=== PATIENT | female | born 1975 | race Hispanic/Latino ===

== ENCOUNTER 2024-06-04 19:32 | Emergency (ER) | payer SELFPAY ==
[2024-06-04 19:41] VITALS: BP 114/78
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
[2024-06-04] MEDS: TYLENOL 650 MG PO (22:09)
[2024-06-04] MEDS: MOTRIN 600 MG PO (22:09)
[2024-06-04 22:53] VITALS: BP 109/68
== END 2024-06-04 22:55 | disposition home or self-care (01) ==
LOC: EMR 19:32
PROVIDERS: EMERGENCY PHYSICIAN Emergency Medicine
DX: S39.012A Strain of muscle, fascia and tendon of lower back, initial encounter (principal); S13.4XXA Sprain of ligaments of cervical spine, initial encounter; S63.501A Unspecified sprain of right wrist, initial encounter; R07.89 Other chest pain; T14.8XXA Other injury of unspecified body region, initial encounter; V43.52XA Car driver injured in collision with other type car in traffic accident, initial encounter; Y92.410 Unspecified street and highway as the place of occurrence of the external cause; F32.A Depression, unspecified
CPT/HCPCS: 99284; 70450; 71046; 72100; 72125; 73110

== ENCOUNTER → 2024-06-20 12:09 | Outpatient (REF) | payer OTHER, SELFPAY | LOC: RAD 12:09 | PROVIDERS: ATTENDING PHYSICIAN Chiropractor | DX: M54.12 Radiculopathy, cervical region (principal); M62.40 Contracture of muscle, unspecified site; M99.01 Segmental and somatic dysfunction of cervical region | CPT/HCPCS: 72050; 72072 ==

== ENCOUNTER → 2025-05-13 13:43 | Outpatient (REF) | payer OTHER, SELFPAY ==
[2025-05-13 14:56] LABS: Hematocrit 38.4 % (37.0-47.0); Hemoglobin 13.1 g/dL (12.0-16.0); Mean Corp Hgb Conc. 34.1 g/dL (33.0-37.0); Mean Corpuscular Volume 92.1 fL (81.0-99.0); Platelet Count 260 10^3/uL (130-400); Red Cell Dist. Width 12.9 % (11.5-14.5)
[2025-05-13 15:18] LABS: ALT (SGPT) 16 U/L (0-35); AST (SGOT) 21 U/L (14-36); Albumin 4.3 g/dl (3.5-5.0); Alkaline Phosphatase 71 U/L (38-126); Blood Urea Nitrogen 16 mg/dl (7-17); Calcium 9.3 mg/dl (8.4-10.2); Carbon Dioxide 25 mmol/L (22-30); Chloride 107 mmol/L (98-107); Glucose 99 mg/dl (70-99); Potassium 4.5 mmol/L (3.5-5.1); Sodium 137 mmol/L (135-145); Total Protein 6.9 g/dl (6.3-8.2); eGFR > 60.00
== END ==
LOC: CLINIC 13:43
PROVIDERS: ATTENDING PHYSICIAN Nurse Practitioner Adult Health
DX: K29.60 Other gastritis without bleeding (principal)
CPT/HCPCS: 36415; 80053; 83013; 84439; 84443; 85027

== ENCOUNTER 2025-05-15 21:19 | Emergency (ER) | payer OTHER, SELFPAY ==
[2025-05-15 21:30] VITALS: BP 105/50
--- NOTE | 2025-05-16 00:14 | ED.GENMED ---
History of Present Illness
General
Chief Complaint: Musculo-Skeletal Complaint
Time Seen by Provider: 05/16/25 00:06
History of Present Illness
History of Present Illness:
TIME OF INITIAL EVALUATION
- 12:20 AM
REVIEW OF OLD RECORDS
- The patient has no significant medical history. I reviewed records, the patient has had a few ED visits over the last several years including for low back pain, abdominal pain, and bronchitis. Of note, she did have wrist x-ray that suggested
small dystrophic calcification in May 2024.
Note:
CHIEF COMPLAINT(S)
Bilateral wrist pain with tingling and itching following recent injection.
HISTORY OF PRESENT ILLNESS
The patient, a 49yo female, presents with a history of bilateral wrist pain, tingling, and itching that started 10 days ago after receiving injections, possibly steroid injections, in both wrists. The patient experiences severe pain, particularly in
the wrists, that is described as very painful and persistent. The patient reports tingling in the fingers and itching at the site of the injections. The symptoms are exacerbated by certain movements, particularly those involving the thumbs. The
patient has a history of frequent wrist pain and had an X-ray for similar symptoms about a year ago. There is visible bruising at the injection sites, with no significant swelling noted. The patients pulse in both wrists is noted to be strong. The
patient has not taken any medications like Benadryl to address the itching. 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
SOCIAL DETERMINANTS AFFECTING HEALTH
The patient works in a kitchen, which may contribute to the recurrence or exacerbation of wrist symptoms due to repetitive hand movements.
PHYSICAL EXAM
- Bruising observed at injection sites on volar aspect of the left wrist wrists.
- Strong bilateral pulse in the wrists.
- No significant swelling or deformity noted.
- Subjective tenderness and exacerbation of pain with thumb movements.
- Negative Chalino test bilaterally
GENERAL: Well appearing in no distress
HEENT: Moist oral mucosa
NEUROLOGIC: Excellent strength all extremities, no obvious coordination deficits
PSYCHIATRIC: Appropriate mental status, normal insight and judgement
PROBLEM LIST
- Acute issues: Bilateral wrist pain, Bruising, Tingling and Itching at injection sites.
PLAN
- Provide the patient with splints for both wrists to reduce movement and allow inflammation to subside.
- Recommend the use of Benadryl to alleviate itching.
- Issue a work excuse note for Monday, Monday, and Monday.
DIFFERENTIAL DIAGNOSIS
The Differential Diagnosis includes, in no particular order and is not limited to:
1. Tenosynovitis
2. Carpal tunnel syndrome
3. Localized allergic reaction to injection
4. Tendinitis
5. Bursitis
6. Rheumatoid arthritis
7. Osteoarthritis
8. Ganglion cyst
9. Psoriatic arthritis
10. Complex regional pain syndrome
RADIOLOGY
- No clear indication for imaging, no recent trauma
EKG
- Not indicated
LABS
- Not indicated
UPDATE
-SUMMARY OF ENCOUNTER
The patient presented with bilateral wrist pain, tingling, and itching following recent injections, likely steroid injections. Symptoms include severe pain in the wrists, tingling in the fingers, and itching at the injection sites. Visible bruising
was noted at the volar aspect of the left wrist. No neurological deficits or signs of impaired perfusion were observed. Given the symptoms relation to recent injections and the patients good perfusion, no imaging was indicated. The treatment plan
includes using Benadryl for itching relief and providing bilateral universal wrist splints to reduce movement and manage pain.
PLAN
Recommend the use of diphenhydramine (Benadryl) to alleviate itching. Provide universal splints for both wrists to minimize movement and assist in decreasing inflammation.
MEDICATION RECONCILIATION
Recommend diphenhydramine (Benadryl) to assist with itching.
MEDICAL DECISION MAKING
-Complexity of Data Reviewed: Chronic conditions affecting care due to the patient�s past history of wrist pain. Differential diagnosis considered includes tenosynovitis, carpal tunnel syndrome, localized allergic reaction to injection, tendinitis,
bursitis, rheumatoid arthritis, osteoarthritis, ganglion cyst, psoriatic arthritis, complex regional pain syndrome.
-Data:
Category 2
No imaging was considered due to a lack of indications, as there were no neurological deficits and good perfusion was present.
Category 3
Discussion of proposed management includes prescription of diphenhydramine and the provision of wrist splints.
DIAGNOSIS
Itching and tingling after injection, bilateral wrist pain. Bruising of wrist (ICD-10: S50.02XA).
Past History
Past History
ED Past Medical History: Psychiatric (Depression)
ED Past Surgical History: Gynecological (Ectopic x2)
Social History
Tobacco: Non-smoker
Alcohol: Occasional
Personal: Other ()
Living: alone
Employment: Employed (cleaning service)
Family History
Family History: Negative Diabetes or Early CAD
Phy Exam
Physical Exam
Physical Exam:
See HPI
Course
Orders/Labs/Results
Orders:
Orders
05/16/25 00:27
Splints/Slings/Crut- Treatment ONCE
Location: Bilateral
Type of Splint: [place] Wrist
Comment: BOTH wrists
Vital Signs
Initial and Last Documented VS:
Initial Vital Signs
Temp Pulse Resp BP Pulse Ox
36.9 C 60 16 105/50 98
05/15/25 21:30 05/15/25 21:30 05/15/25 21:30 05/15/25 21:30 05/15/25 21:30
Last Documented Vital Signs
Temp Pulse Resp BP Pulse Ox
36.9 C 60 16 105/50 98
05/15/25 21:30 05/15/25 21:30 05/15/25 21:30 05/15/25 21:30 05/16/25 00:15
*Pulse Oximetry
SaO2: 98
Oxygen Mode of Delivery: Room air
Patient hypoxic: no
*Critical Care Note
Total Time (30-74mins, 75-104mins- exclusive of procedures): Not Applicable
ED Attending Note
-
Portions of this chart may have been created with voice recognition software.� Occasional wrong word or��sound alike� substitutions may have occurred due to the inherent limitations of voice recognition software.
Discharge Plan
Departure
Prescriptions:
No Action
prednisone 50 MG tablet
50 mg PO DAILY Qty: 3 0RF
hydroxyzine HCl 25 MG tablet
25 mg PO QIDPRN PRN (Reason: itching rash) Qty: 10 0RF
Referrals:
UNKNOWN - PT DOES,NOT KNOW [Family Provider]
Interventions
Interventions:
*Risk Screen - Suicide Last Done: 05/15/25 21:30
*General Assessment Last Done: 05/15/25 23:45
*Neglect/Abuse Screening Last Done: 05/15/25 21:30
*ED- Fall Risk Assessment Last Done: 05/15/25 23:45
*ED COVID-19 Vaccine History Last Done: 05/15/25 23:45
ED-Musculoskeletal Assessment Last Done: 05/15/25 23:45
Discharge Date and Time
Print Language: ESTONIAN
[2025-05-16 00:45] VITALS: BP 108/62
== END 2025-05-16 00:45 | disposition home or self-care (01) ==
LOC: EMR 21:19
PROVIDERS: EMERGENCY PHYSICIAN Emergency Medicine
DX: M25.531 Pain in right wrist (principal); M25.532 Pain in left wrist
CPT/HCPCS: 99282; 29125